=== PATIENT | male | born 1940 | race Caucasian/White ===

== ENCOUNTER 2016-10-11 10:02 | Day surgery (SDC) | payer MEDICARE ==
[~2016-10-11 10:02] MED LIST: LACTATED RINGERS 1,000 ML IV SCH
[2016-10-11] MEDS ORDERED: LACTATED RINGERS 1,000 ML ONE (10:14)
[2016-10-11] MEDS ORDERED: IV START KIT ONE (10:14)
[2016-10-11] MEDS ORDERED: PROPOFOL 20 ML IV ONE ×2 (10:27→10:53)
[2016-10-11 15:36] LABS: HELICOBACTER PYLORII DETECTION NEGATIVE (NEGATIVE)
--- NOTE | 2016-10-15 11:38 | SURGPATH ---
[facility] [address] [place] [id number] Patient Name: ENRIKE OLEA MR#: [id number] : 1940 Gender: M Specimen #: [id number] Collected: 10/11/2016 Received: 10/12/2016 Reported: 10/15/2016 Submitting Phys: ADINA SUE Copy To Phys: JE[facility] Clinical History / Pre-Operative Diagnosis: Nausea Specimen Source / Surgical Procedure Performed: #1 antral rule out giardia, #2 duodenal but without celiac sprue and gastritis, #3 cecum, #4 sigmoid at 30 cm Interpretation: 1. GASTRIC ANTRUM, BIOPSY: - GASTRIC MUCOSA SHOWING NO DIAGNOSTIC ABNORMALITIES. - NO MICROORGANISMS IDENTIFIED WITH ROUTINE STAINING. - NO EVIDENCE OF SIGNIFICANT INFLAMMATION, INTESTINAL METAPLASIA, OR MALIGNANCY. 2. DUODENUM, BIOPSY: - SMALL BOWEL MUCOSA SHOWING NO DIAGNOSTIC ABNORMALITIES. - NO EVIDENCE OF SIGNIFICANT INFLAMMATION, VILLOUS BLUNTING, OR MALIGNANCY. 3. CECUM, BIOPSY: - COLONIC MUCOSA SHOWING NO DIAGNOSTIC ABNORMALITIES. - NO EVIDENCE OF SIGNIFICANT INFLAMMATION OR MALIGNANCY. 4. COLON, SIGMOID 30 CM, BIOPSY: - COLONIC MUCOSA SHOWING NO DIAGNOSTIC ABNORMALITIES. - NO EVIDENCE OF SIGNIFICANT INFLAMMATION OR MALIGNANCY. Electronically Signed Out Chema Cota M.D., Ph.D. Gross Description: The specimen is received in four formalin filled containers, labeled with the patient's name. 1. The specimen is labeled "antrum" and consists of two irregularly shaped fragment(s) of mcneill tissue aggregating to 0.5 x 0.2 x 0.2 cm. The specimen is entirely submitted in cassette 1A. 2. The specimen is labeled "duodenum" and consists of two irregularly shaped fragment(s) of mcneill tissue aggregating to 0.4 x 0.2 x 0.2 cm. The specimen is entirely submitted in cassette 2A. 3. The specimen is labeled "cecum" and consists of two irregularly shaped fragment(s) of mcneill tissue aggregating to 0.5 x 0.2 x 0.2 cm. The specimen is entirely submitted in cassette 3A. 4. The specimen is labeled "sigmoid 30 cm" and consists of one irregularly shaped fragment(s) of mcneill tissue aggregating to 0.2 x 0.2 x 0.2 cm. The specimen is entirely submitted in cassette 4A. YEVGENIY Rutledge Microscopic Description: 1. Examination of multiple levels from gastric antrum biopsy shows two fragments of histologically unremarkable gastric mucosa. The lamina propria is not expanded. No microorganisms are seen with routine staining. There is no evidence of significant inflammation, intestinal metaplasia, or malignancy. 2. Examination of multiple levels from the duodenum biopsy shows two fragments of histologically unremarkable small bowel mucosa. The villous architecture is intact without evidence of blunting. There is no evidence of significant inflammation or malignancy. 3. Examination of multiple levels from the cecum biopsy shows two fragments of histologically unremarkable colonic mucosa. The architecture is intact without evidence of distortion. There is no evidence of significant inflammation or malignancy. 4. Examination of multiple levels from the sigmoid colon biopsy at 30 cm shows a single fragment of histologically unremarkable colonic mucosa. The architecture is intact without evidence of distortion. There is no evidence of significant inflammation or malignancy. 1: 52269 2: 28855 3: 80775 4: 39618 R11.0
== END 2016-10-11 12:07 | disposition home or self-care (01) ==
LOC: SDC 10:02
PROVIDERS: ATTEND Internal Medicine Gastroenterology
PROC: 0DB98ZZ Excision of Duodenum, Via Natural or Artificial Opening Endoscopic (ICD-10-PCS; principal; 2016-10-11)
PROC: 0DBN8ZZ Excision of Sigmoid Colon, Via Natural or Artificial Opening Endoscopic (ICD-10-PCS; 2016-10-11)
PROC: 0DB68ZX Excision of Stomach, Via Natural or Artificial Opening Endoscopic, Diagnostic (ICD-10-PCS; 2016-10-11)
PROC: 0DBH8ZX Excision of Cecum, Via Natural or Artificial Opening Endoscopic, Diagnostic (ICD-10-PCS; 2016-10-11)
DX: K57.30 Diverticulosis of large intestine without perforation or abscess without bleeding (principal); K59.8 Other specified functional intestinal disorders; K29.70 Gastritis, unspecified, without bleeding; K29.80 Duodenitis without bleeding; Z86.010 Personal history of colon polyps; E78.5 Hyperlipidemia, unspecified; Z87.891 Personal history of nicotine dependence; I10 Essential (primary) hypertension; I25.10 Atherosclerotic heart disease of native coronary artery without angina pectoris; E11.9 Type 2 diabetes mellitus without complications; Z95.0 Presence of cardiac pacemaker; Z79.4 Long term (current) use of insulin; Z79.899 Other long term (current) drug therapy
CPT/HCPCS: 43239; 45380; 87081; J7120